=== PATIENT | female | born 1995 | race Caucasian/White ===

== ENCOUNTER 2016-07-08 14:35 | Emergency (ER) | payer OTHER ==
--- NOTE | 2016-07-08 15:47 | RAD ---
Exams: Three-view right ankle and two-view right lower leg COMPARISON: None INDICATION: Inversion injury. Right ankle pain after sitting on stairs. TECHNIQUE: AP, lateral and oblique views of the right ankle and AP and lateral views of the right tibia and fibula were obtained. FINDINGS: Minor soft tissue swelling is seen about the ankle. There is no joint effusion. Alignment is normal and ankle mortise is intact. No acute fracture is identified. IMPRESSION: No acute osseous abnormality within the right ankle or right lower leg.
== END 2016-07-08 17:16 | disposition home or self-care (01) ==
LOC: ED 14:35
DX: S99.911A Unspecified injury of right ankle, initial encounter (principal); X50.0XXA Overexertion from strenuous movement or load, initial encounter; Y93.01 Activity, walking, marching and hiking; Y92.9 Unspecified place or not applicable

== ENCOUNTER 2016-07-13 19:33 | Emergency (ER) | payer OTHER | END 2016-07-13 22:45 | disposition home or self-care (01) | LOC: ED 19:33 | DX: S93.401D Sprain of unspecified ligament of right ankle, subsequent encounter (principal); X50.1XXD Overexertion from prolonged static or awkward postures, subsequent encounter; Z79.891 Long term (current) use of opiate analgesic ==